=== PATIENT | female | born 1955 | race American Indian/Alaskan Native ===

== ENCOUNTER 2022-03-22 22:36 | Emergency (ER) | payer SELFPAY ==
[2022-03-22 23:49] VITALS: BP 178/94
== END 2022-03-23 03:30 | disposition left against medical advice (07) ==
LOC: ED 22:36
DX: Z00.00 Encounter for general adult medical examination without abnormal findings (principal); Z53.21 Procedure and treatment not carried out due to patient leaving prior to being seen by health care provider